=== PATIENT | female | born 1965 ===

== ENCOUNTER 2018-04-06 20:20 | Emergency (ER) | payer BC ==
[2018-04-06 20:41] VITALS: BP 150/90; PULSE 79; RESP 20; TEMP 97; O2SAT 97
[2018-04-06] MEDS ORDERED: Lidocaine 5% Patch TD STA (21:18)
[2018-04-06] MEDS ORDERED: Lidocaine 5% Patch TD ONE (21:29)
--- NOTE | 2018-04-06 21:40 | C.PDOC ---
History Of Present Illness 53 y/o female with PMHx of HTN, presents to the ED complaining of bilateral lower back pain radiating down the bilateral legs, for 3 weeks. Patient has tried taking Motrin, Aleve, Tylenol, and Tramadol with no relief of pain. Seen by PMD, who ordered an outpatient x-ray, but patient states she could not get the imaging taken until tomorrow. Pain persisted tonight, so patient came to the ED instead. She denies any abdominal pain, bladder or bowel dysfunction, saddle anesthesia, numbness, tingling, or lower extremity weakness. Time Seen by Provider: 04/06/18 20:52 Chief Complaint (Nursing): Back Pain History Per: Patient History/Exam Limitations: no limitations Onset/Duration Of Symptoms: Days Current Symptoms Are (Timing): Still Present Past Medical History Reviewed: Historical Data, Nursing Documentation, Vital Signs Vital Signs: Last Vital Signs Temp 97 F L 04/06/18 20:37 Pulse 79 04/06/18 20:37 Resp 20 04/06/18 20:37 BP 150/90 04/06/18 20:37 Pulse Ox 97 04/06/18 22:03 - Medical History PMH: Arthritis, HTN Family History: States: No Known Family Hx - Social History Hx Alcohol Use: No Hx Substance Use: No - Immunization History Hx Tetanus Toxoid Vaccination: No Hx Influenza Vaccination: No Hx Pneumococcal Vaccination: No Review Of Systems Constitutional: Negative for: Fever Gastrointestinal: Negative for: Abdominal Pain Genitourinary: Negative for: Dysuria, Frequency, Incontinence Musculoskeletal: Positive for: Back Pain, Leg Pain Neurological: Negative for: Weakness, Numbness, Other (tingling) Physical Exam - Physical Exam Appears: Non-toxic, No Acute Distress Skin: Normal Color, Warm, No Rash Head: Atraumatic, Normacephalic Eye(s): bilateral: PERRL, EOMI Neck: Normal ROM, Supple Gastrointestinal/Abdominal: Soft, No Tenderness, No Distention Back: No Vertebral Tenderness, Paraspinal Tenderness (diffuse tenderness across lower back), No Straight Leg Raising Extremity: Normal ROM, No Calf Tenderness, No Swelling Pulses: Left Dorsalis Pedis: Normal, Right Dorsalis Pedis: Normal Neurological/Psych: Oriented x3, Normal Speech, Normal Motor, Normal Sensation Gait: Steady ED Course And Treatment O2 Sat by Pulse Oximetry: 97 (RA) Pulse Ox Interpretation: Normal Medical Decision Making Medical Decision Making: Impression: Low back pain radiating down bilateral LE Plan: --Toradol 30 mg IM --Lidoderm patch x1 --Lumbar spine x-ray 2155 xray reviewed, no fx noted. large amt stool seen. pt made aware, will add on muscle relaxant. pot advised to f/u with pmd for outpatient mri and referral to pt. Disposition Counseled Patient/Family Regarding: Studies Performed, Diagnosis, Need For Followup, Rx Given - Disposition Referrals: Shaik Seaman MD [Staff Provider] - Contreras Jimenes MD [Staff Provider] - Cristal Martinez MD [Staff Provider] - Disposition: HOME/ ROUTINE Disposition Time: 21:59 Condition: STABLE Additional Instructions: Please take patch off in 12 hours; Wait 12 hours before applying another patch. Take diclofenac or Advil and Tramadol as prescribed. You may add muscle relaxant at bed time. Follow up with Dr Do and with pain management; outpatient mri of lumbar spine recommended. Physcial therapy recommended. Prescriptions: Cyclobenzaprine [Flexeril] 5 mg PO HS #10 tab Instructions: Low Back Pain (DC), Sciatica Exercises Forms: [facility] (Russian), General Discharge Instructions - Clinical Impression Clinical Impression: Low back pain - PA / CHOIR SINGER / Resident Statement MD/DO has reviewed & agrees with the documentation as recorded. - Scribe Statement The provider has reviewed the documentation as recorded by the Scribe (Dianne Gandara) All medical record entries made by the Scribe were at my direction and personally dictated by me. I have reviewed the chart and agree that the record accurately reflects my personal performance of the history, physical exam, medical decision making, and the department course for this patient. I have also personally directed, reviewed, and agree with the discharge instructions and disposition.
--- NOTE | 2018-04-07 07:50 | RAD ---
Date of service: 04/06/2018 PROCEDURE: Radiographs of the Lumbar Spine. HISTORY: midline back pain radiates to legs COMPARISON: No prior. FINDINGS: BONES: Normal alignment. No listhesis. No fracture. L5-S1 subchondral sclerosis. Minimal spondylosis DISC SPACES: L5-S1 narrowed with vacuum disc phenomena OTHER FINDINGS: None. IMPRESSION: Degenerative disc disease at L5-S1 No fracture or lytic lesion appreciated
== END 2018-04-06 22:14 | disposition home or self-care (01) ==
LOC: C.ER 20:20
DX: M54.5 Low back pain (principal)
CPT/HCPCS: 72100; 96372; 99283; J1885

== ENCOUNTER 2018-04-30 22:09 | Emergency (ER) | payer BC ==
[2018-04-30 23:36] VITALS: BP 148/93; PULSE 72; RESP 20; TEMP 97.6
[2018-04-30 23:37] VITALS: O2SAT 98
--- NOTE | 2018-04-30 23:37 | C.PDOC ---
History Of Present Illness 53 year old female presents to the ED c/o warm, itchy feeling in her throat and facial swelling 1 h after eating rice and avocado tonight. Patient states she has eaten similar food in the past with no allergic reaction to it. 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 Patient denies SOB, lip swelling, tongue swelling, chest tightness, rash. Time Seen by Provider: 04/30/18 22:50 Chief Complaint (Nursing): Allergic Reaction History Per: Patient History/Exam Limitations: no limitations Onset/Duration Of Symptoms: Hrs Current Symptoms Are (Timing): Better Context: Food Possible Cause: Food Associated Symptoms: Swelling, Itching Home/EMS Treatment: Other (Claritin) Recent travel outside of the [place]: No Additional History Per: Patient Past Medical History Reviewed: Historical Data, Nursing Documentation, Vital Signs Vital Signs: Last Vital Signs Temp 97.6 F 04/30/18 23:35 Pulse 72 04/30/18 23:35 Resp 20 04/30/18 23:35 BP 148/93 H 04/30/18 23:35 Pulse Ox 98 05/01/18 01:33 - Medical History PMH: Arthritis, HTN Denies: Chronic Kidney Disease Surgical History: No Surg Hx Family History: States: Unknown Family Hx - Social History Hx Alcohol Use: No Hx Substance Use: No - Immunization History Hx Tetanus Toxoid Vaccination: No Hx Influenza Vaccination: No Hx Pneumococcal Vaccination: No Review Of Systems Constitutional: Negative for: Fever, Chills ENT: Positive for: Throat Swelling. Negative for: Nose Discharge, Mouth Swelling, Throat Pain Respiratory: Negative for: Cough, Shortness of Breath Gastrointestinal: Negative for: Nausea, Vomiting Skin: Negative for: Rash Physical Exam - Physical Exam Appears: Non-toxic, No Acute Distress Skin: Normal Color, Warm, Dry Head: Atraumatic, Normacephalic, Swelling ([id number] infraorbital) Eye(s): bilateral: Normal Inspection Nose: No Discharge Oral Mucosa: Moist Tongue: No Swelling Lips: No Swelling Throat: Normal, No Erythema, No Exudate Neck: Normal ROM, Supple Chest: Symmetrical Cardiovascular: Rhythm Regular Respiratory: Normal Breath Sounds, No Rales, No Rhonchi, No Wheezing Extremity: Normal ROM, No Tenderness, No Swelling Neurological/Psych: Oriented x3, Normal Speech Gait: Steady ED Course And Treatment O2 Sat by Pulse Oximetry: 98 (ON RA) Pulse Ox Interpretation: Normal Progress Note: Plan: - prednisone 60 mg PO. Patient is resting comfortably, tolerating PO, has no shortness of breath, has no intra-oral swelling, no stridor. Patient notes that pruritus has improved.. Patient was advised to avoid potential allergens, and to follow up with physician in 1-2 days. Disposition Counseled Patient/Family Regarding: Diagnosis, Need For Followup, Rx Given - Disposition Referrals: [facility] [Outside] Disposition: HOME/ ROUTINE Disposition Time: 23:41 Condition: STABLE Additional Instructions: Please follow up with PMD Continue claritin daily/ May substitute with benadryl at bedtime Take medications as directed Return to ER if oral swelling, chest and throat tightness, or worse Prescriptions: predniSONE [Prednisone] 40 mg PO DAILY #8 tab Instructions: Food Allergy Forms: [facility] (Urdu) Print Language: FRISIAN - Clinical Impression Clinical Impression: Allergic reaction - PA / ADMINISTRATIVE SUPERVISOR / Resident Statement MD/DO has reviewed & agrees with the documentation as recorded. - Scribe Statement The provider has reviewed the documentation as recorded by the Scribe Luis Puente All medical record entries made by the Vandanaibmorelia were at my direction and personally dictated by me. I have reviewed the chart and agree that the record accurately reflects my personal performance of the history, physical exam, medical decision making, and the department course for this patient. I have also personally directed, reviewed, and agree with the discharge instructions and disposition.
== END 2018-04-30 23:57 | disposition home or self-care (01) ==
LOC: C.ER 22:09
DX: T78.40XA Allergy, unspecified, initial encounter (principal)

== ENCOUNTER 2018-05-04 07:18 | Day surgery (SDC) | payer BC ==
[2018-05-04 07:48] VITALS: O2SAT 100
[2018-05-04] MEDS ORDERED: Propofol 10 mg/ml Inj (20 ML) ONE (10:03)
[2018-05-04] MEDS ORDERED: Lactated Ringer's 500 ML IV ONE ×2 (10:04)
[2018-05-04] MEDS ORDERED: Lactated Ringer's 500 ML IV SCH (10:15)
[2018-05-04 11:06] VITALS: TEMP 98
[2018-05-04 11:13] VITALS: BP 144/82; PULSE 75; RESP 20
[2018-05-04] MEDS ORDERED: Lidocaine Hydrochloride 5 ML INJ ONE (11:25)
== END 2018-05-04 11:20 | disposition home or self-care (01) ==
LOC: C.ENDO 07:18
PROVIDERS: ATTEND Internal Medicine Gastroenterology
DX: K57.30 Diverticulosis of large intestine without perforation or abscess without bleeding (principal); K64.8 Other hemorrhoids
CPT/HCPCS: 45378; 84703; J2704; J3010; J7120